=== PATIENT | female | born 1945 | race Caucasian/White ===

== ENCOUNTER 2025-05-27 06:35 | Inpatient (IN) | payer MEDICARE, OTHER ==
[~2025-05-27] VITALS: Ht 157.5 cm; Wt 80.7 kg
[2025-05-27] MEDS ORDERED: OXYMETAZOLINE HCL NASAL SPRAY 30 ML BOTTLE NS ONE (07:06)
[2025-05-27] MEDS ORDERED: LIDOCAINE 2%-EPI 1:100,000 30 ML VIAL ONE (07:06)
[2025-05-27] MEDS ORDERED: VANCOMYCIN 1 GM VIAL ONE (07:06)
[2025-05-27] MEDS ORDERED: dexaMETHasone SOD PHOSPHATE 2 ML ONE (07:06)
[2025-05-27] MEDS ORDERED: ROCURONIUM BROMIDE 50 MG/5 ML ONE (07:17)
[2025-05-27] MEDS ORDERED: FENTANYL PF 250MCG/5ML AMPUL ONE (07:17)
[2025-05-27] MEDS ORDERED: SEVOFLURANE 250 ML BOTTLE IH ONE (07:50)
[2025-05-27] MEDS ORDERED: LABETALOL 20 MG/4 ML VIAL ONE (07:50)
[2025-05-27] MEDS ORDERED: ALBUTEROL FS 2.5 MG/3 ML VIAL.NEB ONE (08:10)
[2025-05-27] MEDS ORDERED: ALBUTEROL SULFATE 8 GM HFA.AER.AD ONE (08:11)
[2025-05-27 10:02] VITALS: BP 95/52; TEMP 98.3; O2SAT 96
[2025-05-27 10:30] VITALS: BP 94/53; O2SAT 96
[2025-05-27] MEDS ORDERED: MAGNESIUM HYDROXIDE 30 ML UDC PO PRN (10:30)
[2025-05-27] MEDS ORDERED: IV NS 0.9% 1,000 ML IV PRN (10:30)
[2025-05-27] MEDS ORDERED: HYDROMORPHONE 1 MG/1 ML DISP.SYRIN IV PRN (10:30)
[2025-05-27] MEDS ORDERED: MAG HYDROX/AL HYDROX/SIMETH 30 ML UDC PO PRN (10:30)
[2025-05-27] MEDS ORDERED: ONDANSETRON HCL/PF 4 MG/2 ML VIAL IVP PRN ×2 (10:30)
[2025-05-27] MEDS ORDERED: ACETAMINOPHEN 325 MG TABLET PO PRN (10:30)
[2025-05-27] MEDS ORDERED: Z GUARD REMEDY 4 OZ OINT TP PRN (10:30)
[2025-05-27] MEDS ORDERED: HYDROCODONE/APAP 10/325MG TABLET PO PRN (10:30)
[2025-05-27] MEDS ORDERED: NEBI5TAB8 PO (11:29)
[2025-05-27] MEDS: IV NS 0.9% 1,000 ML IV PRN (12:13)
[2025-05-27 12:19] LABS: PLATELET COUNT (AUTO) 293 K/uL (150-450); RED BLOOD CELL COUNT(AUTO) 4.53 MIL/uL (4.0-5.2); RED CELL DISTRIBUTION WIDTH 12.9 % (11.5-15.0); WHITE BLOOD COUNT (AUTO) 14.6 K/uL (4.3-11.0)
[2025-05-27] MEDS ORDERED: EPINEPHRINE (1:10,000) SYRINGE 1 MG/10 ML DISP.SYRIN IVP ONE (12:24)
[2025-05-27 12:39] LABS: ASPARTATE AMINOTRANSFERASE 13.0 U/L (15-37); CALCIUM, SERUM 8.6 mg/dL (8.5-10.1); CREATININE 1.2 mg/dL (0.6-1.3); SODIUM SERUM 146.0 mmol/L (136-145); TOTAL PROTEIN, SERUM 6.5 g/dL (6.4-8.2); UREA NITROGEN, BLOOD 15.0 mg/dL (7-18)
[2025-05-27] MEDS: ACETAMINOPHEN 325 MG TABLET PO PRN (20:14)
[2025-05-27] MEDS: METOPROLOL TARTRATE 25 MG TABLET PO SCH (20:15)
[2025-05-27] MEDS: VANCOMYCIN 1 GM in IV D5W 250ml IV SCH (20:57)
[2025-05-28 06:33] LABS: PLATELET COUNT (AUTO) 317 K/uL (150-450); RED BLOOD CELL COUNT(AUTO) 4.20 MIL/uL (4.0-5.2); RED CELL DISTRIBUTION WIDTH 13.1 % (11.5-15.0); WHITE BLOOD COUNT (AUTO) 16.2 K/uL (4.3-11.0)
[2025-05-28 07:13] LABS: CALCIUM, SERUM 9.2 mg/dL (8.5-10.1); CREATININE 1.0 mg/dL (0.6-1.3); PHOSPHORUS 3.8 mg/dL (2.5-4.9); SODIUM SERUM 140.0 mmol/L (136-145); UREA NITROGEN, BLOOD 19.0 mg/dL (7-18)
[2025-05-28 08:00] VITALS: BP 122/86; TEMP 97.3; O2SAT 96
[2025-05-28] MEDS ORDERED: AMOX-430 PO (12:24)
[2025-05-28] MEDS ORDERED: ALBU18HF2 INH (12:24)
== END 2025-05-28 16:00 | disposition home or self-care (01) | DRG 495 ==
LOC: DS 06:35 → EDSEX 10:02 → ICU 10:02 → MED 10:50
PROVIDERS: ADMIT Nurse Practitioner Acute Care; ATTEND Nurse Practitioner Acute Care
PROC: 0N5R0ZZ Destruction of Maxilla, Open Approach (ICD-10-PCS; 2025-05-27)
PROC: 0NSR04Z Reposition Maxilla with Internal Fixation Device, Open Approach (ICD-10-PCS; 2025-05-27)
PROC: 09UQ07Z Supplement Right Maxillary Sinus with Autologous Tissue Substitute, Open Approach (ICD-10-PCS; 2025-05-27)
PROC: 0NUR07Z Supplement Maxilla with Autologous Tissue Substitute, Open Approach (ICD-10-PCS; principal; 2025-05-27 07:30)
DX: S02.40CK Maxillary fracture, right side, subsequent encounter for fracture with nonunion (principal); J96.01 Acute respiratory failure with hypoxia; E66.2 Morbid (severe) obesity with alveolar hypoventilation; J98.11 Atelectasis; D16.5 Benign neoplasm of lower jaw bone; D72.829 Elevated white blood cell count, unspecified; I10 Essential (primary) hypertension; Z82.49 Family history of ischemic heart disease and other diseases of the circulatory system; Z68.32 Body mass index [BMI] 32.0-32.9, adult; M27.2 Inflammatory conditions of jaws; G62.9 Polyneuropathy, unspecified; I34.0 Nonrheumatic mitral (valve) insufficiency; Z71.3 Dietary counseling and surveillance; X58.XXXD Exposure to other specified factors, subsequent encounter; J32.0 Chronic maxillary sinusitis
CPT/HCPCS: 36415; 71045-TC; 80048-TC; 80053-TC; 83735-TC; 84100-TC; 85025-TC; 88305-TC; 88311-TC; 92526; 92611; A4223; C1713; G0378; J0169; J0461; J0690; J1100; J2704; J3010; J3373; J3490; J7030; J7060